=== PATIENT | female | born 1960 | race Caucasian/White ===

== ENCOUNTER → 2019-05-18 | Outpatient (CLI) | payer BC | LOC: M.CT 12:54 | DX: Z12.31 Encounter for screening mammogram for malignant neoplasm of breast (principal); R91.1 Solitary pulmonary nodule; D71 Functional disorders of polymorphonuclear neutrophils; C54.1 Malignant neoplasm of endometrium; M54.5 Low back pain; R06.02 Shortness of breath ==

== ENCOUNTER → 2019-06-10 | Outpatient (CLI) | payer BC ==
--- NOTE | 2019-06-10 14:16 | CARDNUC ---
[place] [address] CARDIAC NUCLEAR IMAGING REPORT Name: DENZEL EDWARDS Room: [facility]#: [id number] Admission: 06/10/19 Attend Phys: Shaka Evans DO Discharge: Date of : 64 Date of Service: 06/10/19 1416 Report #: [id number] THIS REPORT FOR: //name// APPROVED REPORT Study performed: 06/10/2019 10:11:08 Indication: Fatigue, Dyspnea Patient Location: Out-Patient Stress Tech: Brea Love Stress Nurse: Moon Sutton RN Ht: 5 ft 9 in Wt: 154 lbs BSA: 1.85 m2 BMI: 22.73 Medical History Medical History: recent uterine cancer dx Medications: no cardiac meds Allergies: penicillin, codeine, gabapentin, levoflxacin, metaxalone, pregablin, sulfa Cardiac Risk Factors: age Previous Cardiac Procedures: none Exercise History: Physically active Resting Data Rest SPECT myocardial perfusion imaging was performed in supine position 30 minutes following the intravenous injection of 12.0 mCi of Tc-99m Sestamibi. Time of rest injection: 08:40 The images were gated to evaluate regional wall motion and calculate left ventricular ejection fraction. Administration Route: IV Administration Site: Right Wrist Pharmacologic Stress Pharmacologic stress test was performed by injecting Regadenoson 0.4 mg IV push over 10-15 seconds immediately followed by the intravenous injection of 33.7 mCi of Tc-99m Sestamibi. Time of stress injection: 10:25 Administration Route: IV Administration Site: Right Wrist Heart Rate at time of stress injection: 130 bpm. Gated Stress SPECT was performed 40 minutes after stress injection. The images were gated to evaluate regional [place] [address] CARDIAC NUCLEAR IMAGING REPORT Name: GILLES BROWNEMEMO Room: [facility]#: [id number] Admission: 06/10/19 Attend Phys: Shaka Evans DO Discharge: Date of : 64 Date of Service: 06/10/19 1416 Report #: [id number] left ventricular ejection fraction. Prone imaging was performed. Stress Test Details Stress Test: Pharmacologic stress testing performed using 0.4 mg of regadenoson per 5 mL given IV over 10 seconds. Reason for pharmacologic stress test: physical limitation. HR Max Heart Rate (APMHR): 164 bpm Resting HR: 71 bpm Target HR (85% APMHR): 139 bpm Max HR Achieved: 130 bpm % of APMHR: 79 Recovery HR: 100 bpm HR response to stress: Normal HR response to stress BP Resting BP: 141/72 mmHg Max BP: 147/78 mmHg Recovery BP: 155/71 mmHg BP response to stress: Normal blood pressure response to stress. ECG Resting ECG: Sinus Rhythm, normal EKG Stress ECG: Sinus Tachycardia, normal EKG ST Change: None Maximum ST Deviation: 0 mm Arrhythmia: None Recovery ECG: Sinus Rhythm, normal EKG Recovery ST Change: None Recovery ST Deviation: 0 mm Recovery Arrhythmia: None Clinical Reason for Termination: Completed protocol Stress Symptoms: right jaw pain Exercise duration: 0 min sec Exercise capacity: 1 METs Nurse Comments pt had recent surgery on foot and was unable to walk on treadmill Stress ECG Conclusion Normal hemodynamic response to pharmacologic stress. Non-diagnostic EKG stress due to failure [place] [address] CARDIAC NUCLEAR IMAGING REPORT Name: DENZEL EDWARDS Room: [facility]#: [id number] Admission: 06/10/19 Attend Phys: Shaka Evans DO Discharge: Date of : 64 Date of Service: 06/10/19 1416 Report #: [id number] Study Quality Study: Fair Artifact: Moderate Increased GI uptake Lung Uptake: Normal Study Data At rest, the left ventricular ejection fraction was 69%.. Post stress, the left ventricular ejection was 75%.. SSS: 12 SRS: 12 SDS: 0 TID = 0.99. Perfusion The resting study reveals diffuse mild to moderate photopenia. There is excessive bowel uptake. The post stress images revealed diffuse very mild photopenia with excessive bowel uptake. The prone images are essentially normal. There are no significant defects. There is mild increased bowel uptake. There are no reversible defects seen is no evidence of myocardial ischemia. Wall Motion Normal left ventricular wall motion. Nuclear Conclusion ECG Findings: non-diagnostic Clinical Findings: equivocal Nuclear Findings: negative for ischemia Exercise Capacity: not assessed Left Ventricular Function: normal Risk Study: low No scintigraphic evidence for ischemia myocardial scar. <Conclusion> Normal hemodynamic response to pharmacologic stress. Non-diagnostic EKG stress due to failure to attain target HR. <ELECTRONICALLY SIGNED> By: Christopher Griffiths MD, FACC 06/10/19 1416 1416 1416 Christopher Griffiths MD, FACC /INF
== END ==
LOC: M.NUC 06-02 14:57
DX: R06.02 Shortness of breath (principal); R06.00 Dyspnea, unspecified; Z88.8 Allergy status to other drugs, medicaments and biological substances; Z88.0 Allergy status to penicillin; Z88.2 Allergy status to sulfonamides